=== PATIENT | female | born 1965 ===

== ENCOUNTER 2017-05-16 03:46 | Emergency (ER) | payer SELFPAY ==
[~2017-05-16] VITALS: Ht 162.6 cm; Wt 70.0 kg
[2017-05-16 03:56] VITALS: BP 119/73; PULSE 75; RESP 22; O2SAT 100
[2017-05-16] MEDS ORDERED: SODIUM CHLORIDE 0.9% FLUSH 10 ML FLUSH IVF PRN (04:00)
[2017-05-16] MEDS ORDERED: MORPHINE SULFATE 4 MG/ML INJ IV PUSH ONE (04:00)
--- NOTE | 2017-05-16 04:11 | PD ---
HPI . Headache and weakness Chief Complaint: General Weakness Time Seen by Provider: 03:57 Travel History International Travel<30 days: No Contact w/Intl Traveler<30days: No Traveled to known affect area: No History of Present Illness HPI This patient presents with chief complaint of headache and weakness. Onset of symptoms was approximately 8:30 PM. EMS has discovered that she has been exposed to carbon monoxide since about 3 PM. The patient is complaining with a global headache which she describes as quite severe. She is also complaining of malaise and weakness which was so severe that she was having to crawl around on the floor. She was too weak to stand up. She states that she called her landlord who called EMS who discovered a high level of carbon monoxide in her apartment. There was a generator running right outside her window. The patient and EMS reports that her symptoms have improved en route to the hospital following removal from the carbon monoxide and administration of oxygen. PFSH Past Medical History Cardiovascular Problems: Yes (MVP) ?: Not LMP: LAST WEEK Social History Tobacco Use: No Allergies-Medications (Allergen,Severity, Reaction): Uncoded Allergies: shellfish (Allergy, Unknown, 05/16/17) Reported Meds & Prescriptions Reported Meds & Active Scripts Active No Active Prescriptions or Reported Medications Review of Systems Except as stated in HPI: all other systems reviewed are Neg General / Constitutional: Positive: Other (malaise) HENT: Positive: Headaches Neurologic: Positive: Weakness Physical Exam Narrative GENERAL: Awake and alert and fully oriented. SKIN: warm/dry. HEAD: Normocephalic. Scalp is nontender. EYES: Pupils equal and round. No scleral icterus. No injection or drainage. ENT: No nasal bleeding or discharge. Mucous membranes pink and moist. NECK: Trachea midline. Full range of motion without pain.. CARDIOVASCULAR: Regular rate and rhythm. Heart sounds are normal. RESPIRATORY: No accessory muscle use. Clear to auscultation. Breath sounds equal bilaterally. GASTROINTESTINAL: Abdomen soft. Nontender. Bowel sounds present. Nondistended. MUSCULOSKELETAL: No obvious deformities. NEUROLOGICAL: Awake and alert. No obvious cranial nerve deficits. Motor grossly within normal limits. Normal speech. PSYCHIATRIC: Appropriate mood and affect; insight and judgment normal. Data Data Last Documented VS Vital Signs Date Time Temp Pulse Resp B/P (MAP) Pulse Ox O2 Delivery O2 Flow Rate FiO2 05/16/17 04:09 100 Non-Rebreather 15.00 05/16/17 03:56 75 22 119/73 (88) Orders Orders Complete Blood Count With Diff (05/16/17 03:57) Ecg Monitoring (05/16/17 03:57) Iv Access Insert/Monitor (05/16/17 03:57) Oximetry (05/16/17 03:57) Oxygen Administration (05/16/17 03:57) Sodium Chloride 0.9% Flush (Ns Flush) (05/16/17 04:00) Morphine Inj (Morphine Inj) (05/16/17 04:00) Blood Gas Carboxyhemoglobin (05/16/17 03:57) Arterial Blood Gas (Abg) (05/16/17 ) Troponin I (05/16/17 04:05) Electrocardiogram (05/16/17 ) Basic Metabolic Panel (Bmp) (05/16/17 04:07) Labs Laboratory Tests Test 05/16/17 04:05 05/16/17 04:07 Blood Gas Puncture Site LT RADIAL Blood Gas Patient Temperature 98.6 Blood Gas HCO3 22 mmol/L Blood Gas Base Excess -1.7 mmol/L Blood Gas Oxygen Saturation 79 % Arterial Blood pH 7.45 Arterial Blood Partial Pressure CO2 32 mmHg Arterial Blood Partial Pressure O2 325 mmHG Arterial Blood Oxygen Content 14.1 Vol % Arterial Blood Carboxyhemoglobin 19.9 % Arterial Blood Methemoglobin 0.9 % Blood Gas Hemoglobin 11.9 G/DL Oxygen Delivery Device NRB Blood Gas Liter Flow 12 L/M Blood Gas Inspired Oxygen 100 % White Blood Count 4.8 TH/MM3 Red Blood Count 3.97 MIL/MM3 Hemoglobin 12.5 GM/DL Hematocrit 36.3 % Mean Corpuscular Volume 91.5 FL Mean Corpuscular Hemoglobin 31.5 PG Mean Corpuscular Hemoglobin Concent 34.5 % Red Cell Distribution Width 12.9 % Platelet Count 233 TH/MM3 Mean Platelet Volume 8.8 FL Neutrophils (%) (Auto) 60.8 % Lymphocytes (%) (Auto) 27.5 % Monocytes (%) (Auto) 9.2 % Eosinophils (%) (Auto) 1.0 % Basophils (%) (Auto) 1.5 % Neutrophils # (Auto) 2.9 TH/MM3 Lymphocytes # (Auto) 1.3 TH/MM3 Monocytes # (Auto) 0.4 TH/MM3 Eosinophils # (Auto) 0.0 TH/MM3 Basophils # (Auto) 0.1 TH/MM3 CBC Comment DIFF FINAL Differential Comment Blood Urea Nitrogen 12 MG/DL Creatinine 0.84 MG/DL Random Glucose 103 MG/DL Calcium Level 8.7 MG/DL Sodium Level 137 MEQ/L Potassium Level 3.5 MEQ/L Chloride Level 105 MEQ/L Carbon Dioxide Level 25.1 MEQ/L Anion Gap 7 MEQ/L Estimat Glomerular Filtration Rate 72 ML/MIN Troponin I LESS THAN 0.02 NG/ML MDM Medical Decision Making Medical Screen Exam Complete: Yes Emergency Medical Condition: Yes Interpretation(s) EKG shows a normal sinus rhythm with no ST segment elevation. Differential Diagnosis Differential diagnosis of headache includes but is not limited to migraine, muscle contraction headache, brain tumor, brain bleed Narrative Course This patient presents with the chief complaint of headache and malaise following exposure to carbon monoxide. I have queried [employer] regarding indications for hyperbaric oxygen. It recommends HBO for carbon monoxide level greater than 25%, pH less than 7.1, evidence of cardiac ischemia, ongoing symptoms despite 100% oxygen. The patient is on 100% oxygen. Appropriate labs have been ordered. CBC & BMP Diagram 05/16/17 04:07 Calcium Level 8.7 Troponin is normal. ABG Test 05/16/17 04:05 Arterial Blood Carboxyhemoglobin 19.9 % *H Arterial Blood Methemoglobin 0.9 % Arterial Blood Oxygen Content 14.1 Vol % Arterial Blood Partial Pressure CO2 32 mmHg L Arterial Blood Partial Pressure O2 325 mmHG H Arterial Blood pH 7.45 H Blood Gas Base Excess -1.7 mmol/L Blood Gas HCO3 22 mmol/L Blood Gas Hemoglobin 11.9 G/DL L Blood Gas Inspired Oxygen 100 % Blood Gas Liter Flow 12 L/M Blood Gas Oxygen Saturation 79 % *L Oxygen Delivery Device NRB This patient is feeling markedly improved. She has been on 100% oxygen for more than an hour. She is stable for discharge. Diagnosis Primary Impression: Headache Qualified Codes: R51 - Headache Additional Impression: Carbon monoxide poisoning Qualified Codes: T58.91XA - Toxic effect of carbon monoxide from unspecified source, accidental (unintentional), initial encounter Patient Instructions: Carbon Monoxide Poisoning (DC), General Instructions Scripts No Active Prescriptions or Reported Meds Disposition: 01 DISCHARGE HOME Condition: Stable Mariel Oconnell MD May 16, 2017 04:11
[2017-05-16 04:22] LABS: BLOOD GAS BASE EXCESS -1.7 mmol/L (-2-2); BLOOD GAS CARBOXYHEMOGLOBIN 19.9 % (0-4); BLOOD GAS HCO3 22 mmol/L (22-26); BLOOD GAS METHEMOGLOBIN 0.9 % (0-2); BLOOD GAS O2 HGB SATURATION 79 % (90-100); BLOOD GAS OXYGEN CONTENT 14.1 Vol % (12.0-20.0); BLOOD GAS PCO2 32 mmHg (38-42); BLOOD GAS PO2 325 mmHG (61-120); BLOOD GAS TOTAL HGB 11.9 G/DL (12.0-16.0); TEMP CORR TO 98.6
[2017-05-16 04:23] LABS: CRITICAL VALUE YES; DRAW SITE LT RADIAL; FIO2 100 %; LITER FLOW 12 L/M; NUMBER OF ARTERIAL PUNCTURES 1; OXYGEN DEVICE NRB; STAT YES; ULNAR PULSE PRESENT
[2017-05-16 04:38] LABS: AUTOMATED NEUTROPHIL # 2.9 TH/MM3 (1.8-7.7); BASOPHIL # 0.1 TH/MM3 (0-0.2); BASOPHIL % 1.5 % (0.0-2.0); HEMATOCRIT 36.3 % (35.0-46.0); HEMO FLAGS DIFF FINAL; LYMPH % 27.5 % (9.0-44.0); LYMPHOCYTE # 1.3 TH/MM3 (1.0-4.8); MEAN CELL VOLUME 91.5 FL (80.0-100.0); MEAN CORPUSCULAR HEMOGLOBIN 31.5 PG (27.0-34.0); MEAN CORPUSCULAR HGB CONC 34.5 % (32.0-36.0); MONO % 9.2 % (0.0-8.0); NEUT % 60.8 % (16.0-70.0); PLATELET COUNT 233 TH/MM3 (150-450); RED BLOOD COUNT 3.97 MIL/MM3 (4.00-5.30); RED CELL DISTRIBUTION WIDTH 12.9 % (11.6-17.2); WHITE BLOOD COUNT 4.8 TH/MM3 (4.0-11.0)
[2017-05-16 05:15] LABS: ANION GAP 7 MEQ/L (5-15); BICARBONATE 25.1 MEQ/L (21.0-32.0); BLOOD UREA NITROGEN 12 MG/DL (7-18); CHLORIDE 105 MEQ/L (98-107); GLOMERULAR FILTRATION RATE 72 ML/MIN (>89); POTASSIUM 3.5 MEQ/L (3.5-5.1); SODIUM (NA) 137 MEQ/L (136-145)
--- NOTE | 2017-05-16 14:07 | EKG ---
Date Performed: 05/16/2017 Time Performed: 04:20:22 PTAGE: 51 years EKG: Sinus rhythm NORMAL ECG NO PREVIOUS TRACING DOCTOR: Jigna Sheikh Interpretating Date/Time 05/16/2017 14:05:10
== END 2017-05-16 06:33 | disposition home or self-care (01) ==
LOC: NEPC 03:46
DX: R51 Headache (principal); T58.91XA Toxic effect of carbon monoxide from unspecified source, accidental (unintentional), initial encounter; X58.XXXA Exposure to other specified factors, initial encounter; I34.1 Nonrheumatic mitral (valve) prolapse
CPT/HCPCS: 36600; 80048; 82805; 84484; 85025; 93005; 99285